=== PATIENT | male | born 1940 | race Caucasian/White ===

== ENCOUNTER 2021-01-27 13:16 | Inpatient (IN) | payer MEDICARE, BC ==
[2021-01-27 15:09] LABS: CHLORIDE,CL 102 mEq/L (98-106); SODIUM,NA 138 mEq/L (136-145)
[2021-01-27] MEDS ORDERED: Sodium Chloride 0.9% 10 ML Syringe FLUSH PRN (15:18)
[2021-01-27] MEDS ORDERED: Temazepam 15 MG Cap PO PRN (15:18)
[2021-01-27] MEDS ORDERED: Azithromycin 500 MG in Sodium Chloride 0.9% 250 ML IV SCH (16:00)
[2021-01-27] MEDS: Diltiazem IR 30 MG Tab PO SCH ×2 (16:18→21:01)
[2021-01-27] MEDS ORDERED: Acetaminophen/HYDROcodone 325-5 MG Tab PO PRN (16:30)
[2021-01-27] MEDS: Albuterol/Ipratropium 3.0-0.5 MG/3 ML Neb Soln NEB PRN (16:36)
[2021-01-27] MEDS: Acetaminophen 325 MG Tab PO PRN (17:03)
[2021-01-27] MEDS: metFORMIN 500 MG Tab PO SCH (17:47)
[2021-01-27] MEDS ORDERED: Non-Formulary Medication 1 Each (Levothyroxine Sodium [Levothyroxine Sodium] 137 MCG Table PO SCH (20:00)
[2021-01-27] MEDS: cefTRIAXone 1 GM Vial IVPUSH SCH (20:28)
[2021-01-27] MEDS: Insulin NPH HUM/REG Insulin HM 100 UNIT/ML 3 ML Vial SQ SCH (20:28)
[2021-01-28] MEDS: Albuterol/Ipratropium 3.0-0.5 MG/3 ML Neb Soln NEB PRN ×2 (00:04→07:46)
[2021-01-28] MEDS ORDERED: Diltiazem 100 MG in Sodium Chloride 0.9% 100 ML IV SCH (00:45)
[2021-01-28] MEDS ORDERED: Furosemide 40 MG/4 ML VIAL IVPUSH SCH (00:45)
[2021-01-28] MEDS ORDERED: Diltiazem 25 MG/5 ML SDV IVPUSH ONE (00:45)
--- NOTE | 2021-01-28 01:39 | PCM.PN ---
- General Info Date of Service: 01/28/21 Subjective Update: Satnam is an 80 yo male who was admitted to the hospital from the clinic with RLL pneumonia and atrial fibrillation with RVR. Patient was started on Cardizem 30mg IR Q6h and received his second dose around 2200 this evening. Nursing staff did notice patient to start declining this evening. Heart rate initially did slow down in the low 100's this afternoon but tonight did go back in the 130- 150's. He states he has been more short of breath tonight. - Review of Systems General: Reports: No Symptoms HEENT: Reports: No Symptoms Pulmonary: Reports: Shortness of Breath, Cough Cardiovascular: Reports: Dyspnea on Exertion. Denies: Chest Pain, Palpitations, Lightheadedness Gastrointestinal: Reports: No Symptoms Genitourinary: Reports: No Symptoms Musculoskeletal: Reports: No Symptoms Neurological: Reports: No Symptoms Psychiatric: Reports: No Symptoms - Patient Data Vitals - Most Recent: Last Vital Signs Temp 97.8 F 01/27/21 23:33 Pulse 118 H 01/28/21 00:03 Resp 26 H 01/28/21 00:03 BP 106/76 01/28/21 00:03 Pulse Ox 92 L 01/28/21 00:03 Weight - Most Recent: 283 lb 1.6 oz Lab Results Last 24 Hours: Laboratory Results - last 24 hr 01/27/21 01/27/21 01/27/21 Range/Units 13:26 14:25 14:25 WBC 8.7 (4.0-11.0) 10^3/uL RBC 4.64 (4.50-6.00) x10^6/uL Hgb 13.7 L (14.0-18.0) g/dL Hct 43.3 (42.0-52.0) % MCV 93.3 (83.0-97.0) fL MCH 29.5 (27.0-32.0) pg MCHC 31.6 L (32.0-36.0) g/dL RDW Coeff of Taiwo 15.2 H (11.0-15.0) % Plt Count 172 (150-400) 10^3/uL Immature Gran % (Auto) 0.1 (0.0-4.9) % Neut % (Auto) 81.6 H (41-71) % Lymph % (Auto) 8.5 L (24-44) % [place] % (Auto) 9.3 (0-10) % Eos % (Auto) 0.3 (0-6) % Baso % (Auto) 0.2 (0-1) % Neut # (Auto) 7.10 (1.80-8.00) x10^3/uL Lymph # (Auto) 0.74 (0.60-5.00) 10^3/uL [place] # (Auto) 0.81 (0.00-1.50) 10^3/uL Eos # (Auto) 0.03 (0.00-1.50) 10^3/uL Baso # (Auto) 0.02 (0.00-0.50) 10^3/uL Immature Gran # (Auto) 0.01 (0.00-0.49) 10^3/uL PT (9.7-12.3) SEC INR (0.92-1.18) Sodium 138 (136-145) mEq/L Potassium 4.8 (3.5-5.0) mEq/L Chloride 102 (98-106) mEq/L Carbon Dioxide 28 (21-32) mmol/L BUN 21 H (7-18) mg/dL Creatinine 1.1 (0.7-1.3) mg/dL Est Cr Clr Drug Dosing TNP Estimated GFR (MDRD) > 60 (>=60) mL/min Glucose 233 H D (75-99) mg/dL POC Glucose (75-105) mg/dL Lactic Acid (0.4-2.0) mmol/L Calcium 8.9 (8.4-10.1) mg/dL Total Bilirubin 1.3 H (0.0-1.0) mg/dL AST 24 (15-37) U/L ALT 35 (12-78) U/L Alkaline Phosphatase 81 (46-116) U/L Creatine Kinase 57 (35-232) U/L Troponin I High Sens 18.3 (<=76) pg/mL C-Reactive Protein 10.4 H (0.2-0.8) mg/dL NT-Pro-B Natriuret Pep 2477 H (0-1000) pg/mL Total Protein 7.6 (6.4-8.2) g/dL Albumin 3.2 L (3.4-5.0) g/dL SARS CoV-2 RNA Rapid SAMIR Negative (NEGATIVE) 01/27/21 01/27/21 01/27/21 Range/Units 14:25 14:25 17:34 WBC (4.0-11.0) 10^3/uL RBC (4.50-6.00) x10^6/uL Hgb (14.0-18.0) g/dL Hct (42.0-52.0) % MCV (83.0-97.0) fL MCH (27.0-32.0) pg MCHC (32.0-36.0) g/dL RDW Coeff of Taiwo (11.0-15.0) % Plt Count (150-400) 10^3/uL Immature Gran % (Auto) (0.0-4.9) % Neut % (Auto) (41-71) % Lymph % (Auto) (24-44) % [place] % (Auto) (0-10) % Eos % (Auto) (0-6) % Baso % (Auto) (0-1) % Neut # (Auto) (1.80-8.00) x10^3/uL Lymph # (Auto) (0.60-5.00) 10^3/uL [place] # (Auto) (0.00-1.50) 10^3/uL Eos # (Auto) (0.00-1.50) 10^3/uL Baso # (Auto) (0.00-0.50) 10^3/uL Immature Gran # (Auto) (0.00-0.49) 10^3/uL PT 22.4 H (9.7-12.3) SEC INR 2.17 H (0.92-1.18) Sodium (136-145) mEq/L Potassium (3.5-5.0) mEq/L Chloride (98-106) mEq/L Carbon Dioxide (21-32) mmol/L BUN (7-18) mg/dL Creatinine (0.7-1.3) mg/dL Est Cr Clr Drug Dosing Estimated GFR (MDRD) (>=60) mL/min Glucose (75-99) mg/dL POC Glucose 216 H (75-105) mg/dL Lactic Acid 1.7 (0.4-2.0) mmol/L Calcium (8.4-10.1) mg/dL Total Bilirubin (0.0-1.0) mg/dL AST (15-37) U/L ALT (12-78) U/L Alkaline Phosphatase (46-116) U/L Creatine Kinase (35-232) U/L Troponin I High Sens (<=76) pg/mL C-Reactive Protein (0.2-0.8) mg/dL NT-Pro-B Natriuret Pep (0-1000) pg/mL Total Protein (6.4-8.2) g/dL Albumin (3.4-5.0) g/dL SARS CoV-2 RNA Rapid SAMIR (NEGATIVE) 01/27/21 Range/Units 20:26 WBC (4.0-11.0) 10^3/uL RBC (4.50-6.00) x10^6/uL Hgb (14.0-18.0) g/dL Hct (42.0-52.0) % MCV (83.0-97.0) fL MCH (27.0-32.0) pg MCHC (32.0-36.0) g/dL RDW Coeff of Taiwo (11.0-15.0) % Plt Count (150-400) 10^3/uL Immature Gran % (Auto) (0.0-4.9) % Neut % (Auto) (41-71) % Lymph % (Auto) (24-44) % [place] % (Auto) (0-10) % Eos % (Auto) (0-6) % Baso % (Auto) (0-1) % Neut # (Auto) (1.80-8.00) x10^3/uL Lymph # (Auto) (0.60-5.00) 10^3/uL [place] # (Auto) (0.00-1.50) 10^3/uL Eos # (Auto) (0.00-1.50) 10^3/uL Baso # (Auto) (0.00-0.50) 10^3/uL Immature Gran # (Auto) (0.00-0.49) 10^3/uL PT (9.7-12.3) SEC INR (0.92-1.18) Sodium (136-145) mEq/L Potassium (3.5-5.0) mEq/L Chloride (98-106) mEq/L Carbon Dioxide (21-32) mmol/L BUN (7-18) mg/dL Creatinine (0.7-1.3) mg/dL Est Cr Clr Drug Dosing Estimated GFR (MDRD) (>=60) mL/min Glucose (75-99) mg/dL POC Glucose 275 H (75-105) mg/dL Lactic Acid (0.4-2.0) mmol/L Calcium (8.4-10.1) mg/dL Total Bilirubin (0.0-1.0) mg/dL AST (15-37) U/L ALT (12-78) U/L Alkaline Phosphatase (46-116) U/L Creatine Kinase (35-232) U/L Troponin I High Sens (<=76) pg/mL C-Reactive Protein (0.2-0.8) mg/dL NT-Pro-B Natriuret Pep (0-1000) pg/mL Total Protein (6.4-8.2) g/dL Albumin (3.4-5.0) g/dL SARS CoV-2 RNA Rapid SAMIR (NEGATIVE) Meño Results Last 24 Hours: Microbiology 01/27/21 14:48 Influenza Type A Antigen Screen - Final Nasopharyngeal Swab NEGATIVE INFLUENZA A VIRUS AG REFERENCE RANGE: NEGATIVE Influenza Type B Antigen Screen - Final NEGATIVE INFLUENZA B VIRUS AG REFERENCE RANGE: NEGATIVE Med Orders - Current: Current Medications Acetaminophen (Acetaminophen 325 Mg Tab) 650 mg PO Q4H PRN PRN Reason: Pain (Mild 1-3)/fever Last Admin: 01/27/21 17:03 Dose: 650 mg Documented by: Hydrocodone Bitart/Acetaminophen (Acetaminophen/Hydrocodone 325-5 Mg Tab) 1 tab PO Q4H PRN PRN Reason: Pain Albuterol/Ipratropium (Albuterol/Ipratropium 3.0-0.5 Mg/3 Ml Neb Soln) 3 ml NEB Q4H PRN PRN Reason: Shortness Of Breath/wheezing Last Admin: 01/28/21 00:04 Dose: 3 ml Documented by: Ceftriaxone Sodium (Ceftriaxone 1 Gm Vial) 1 gm IVPUSH Q24H ELIF Last Admin: 01/27/21 20:28 Dose: 1 gm Documented by: Furosemide (Furosemide 40 Mg Tab) 40 mg PO DAILY@1600 [facility] Furosemide (Furosemide 80 Mg Tab) 80 mg PO DAILY [facility] Furosemide (Furosemide 40 Mg/4 Ml Vial) 40 mg IVPUSH DAILY@1800 [facility] Glipizide (Glipizide 5 Mg Tab) 5 mg PO DAILY [facility] Azithromycin 500 mg/ Sodium (Chloride) 250 mls @ 250 mls/hr IV Q24H [facility] Last Admin: 01/27/21 16:19 Dose: 250 mls/hr Documented by: Diltiazem HCl 100 mg/ Sodium (Chloride) 100 mls @ 5 mls/hr IV TITRATE [facility]; Protocol Last Admin: 01/28/21 01:14 Dose: 5 mg/hr, 5 mls/hr Documented by: Insulin NPH Beef/Pork (Insulin Nph Hum/Reg Insulin Hm 100 Unit/Ml 3 Ml Vial) 40 unit SQ QPM [facility] Last Admin: 01/27/21 20:28 Dose: 15 unit Documented by: Insulin NPH Beef/Pork (Insulin Nph Hum/Reg Insulin Hm 100 Unit/Ml 3 Ml Vial) 60 unit SQ QAM [facility] Levothyroxine Sodium (Levothyroxine 112 Mcg Tab) 112 mcg PO DAILY@0700 [facility] Levothyroxine Sodium (Levothyroxine 50 Mcg Tab) 25 mcg PO 0700 [facility] Metformin HCl (Metformin 500 Mg Tab) 750 mg PO BIDMEALS [facility] Last Admin: 01/27/21 17:47 Dose: 750 mg Documented by: Potassium Chloride (Potassium Chloride 10 Meq Tab.Er) 20 meq PO DAILY [facility] Simvastatin (Simvastatin 40 Mg Tab) 40 mg PO DAILY [facility] Sodium Chloride (Sodium Chloride 0.9% 10 Ml Syringe) 10 ml FLUSH ASDIRECTED PRN PRN Reason: Keep Vein Open Temazepam (Temazepam 15 Mg Cap) 15 mg PO BEDTIME PRN PRN Reason: Sleep Warfarin Sodium (Warfarin 5 Mg Tab) 5 mg PO MoWeFr@1200 [facility] Warfarin Sodium (Warfarin 2.5 Mg Tab) 7.5 mg PO SuTuThSa@1200 [facility] Discontinued Medications Diltiazem HCl (Diltiazem Ir 30 Mg Tab) 30 mg PO Q6H [facility] Last Admin: 01/27/21 21:01 Dose: 30 mg Documented by: Diltiazem HCl (Diltiazem 25 Mg/5 Ml Sdv) 10 mg IVPUSH ONETIME ONE Stop: 01/28/21 00:46 Last Admin: 01/28/21 01:13 Dose: 10 mg Documented by: Lisinopril (Lisinopril 10 Mg Tab) 10 mg PO DAILY [facility] Non-Formulary Medication (Levothyroxine Sodium [Levothyroxine Sodium]) 137 mcg PO BID ELIF Last Admin: 01/28/21 01:15 Dose: Not Given Documented by: - Exam Quality Assessment: Supplemental Oxygen, Urine Catheter Urinary Catheter Total Time: 0Days 0Hours General: Alert, Oriented, Cooperative, Mild Distress, Moderate Distress Lungs: Crackles, Wheezing. No: Normal Respiratory Effort Cardiovascular: Irregular Rhythm, Tachycardia Extremities: Pedal Edema (trace, chronic stasis dermatitis) Psy/Mental Status: Alert, Normal Affect, Normal Mood - Patient Data Lab Results Last 24 hrs: Laboratory Results - last 24 hr 01/27/21 01/27/21 01/27/21 Range/Units 13:26 14:25 14:25 WBC 8.7 (4.0-11.0) 10^3/uL RBC 4.64 (4.50-6.00) x10^6/uL Hgb 13.7 L (14.0-18.0) g/dL Hct 43.3 (42.0-52.0) % MCV 93.3 (83.0-97.0) fL MCH 29.5 (27.0-32.0) pg MCHC 31.6 L (32.0-36.0) g/dL RDW Coeff of Taiwo 15.2 H (11.0-15.0) % Plt Count 172 (150-400) 10^3/uL Immature Gran % (Auto) 0.1 (0.0-4.9) % Neut % (Auto) 81.6 H (41-71) % Lymph % (Auto) 8.5 L (24-44) % [place] % (Auto) 9.3 (0-10) % Eos % (Auto) 0.3 (0-6) % Baso % (Auto) 0.2 (0-1) % Neut # (Auto) 7.10 (1.80-8.00) x10^3/uL Lymph # (Auto) 0.74 (0.60-5.00) 10^3/uL [place] # (Auto) 0.81 (0.00-1.50) 10^3/uL Eos # (Auto) 0.03 (0.00-1.50) 10^3/uL Baso # (Auto) 0.02 (0.00-0.50) 10^3/uL Immature Gran # (Auto) 0.01 (0.00-0.49) 10^3/uL PT (9.7-12.3) SEC INR (0.92-1.18) Sodium 138 (136-145) mEq/L Potassium 4.8 (3.5-5.0) mEq/L Chloride 102 (98-106) mEq/L Carbon Dioxide 28 (21-32) mmol/L BUN 21 H (7-18) mg/dL Creatinine 1.1 (0.7-1.3) mg/dL Est Cr Clr Drug Dosing TNP Estimated GFR (MDRD) > 60 (>=60) mL/min Glucose 233 H D (75-99) mg/dL POC Glucose (75-105) mg/dL Lactic Acid (0.4-2.0) mmol/L Calcium 8.9 (8.4-10.1) mg/dL Total Bilirubin 1.3 H (0.0-1.0) mg/dL AST 24 (15-37) U/L ALT 35 (12-78) U/L Alkaline Phosphatase 81 (46-116) U/L Creatine Kinase 57 (35-232) U/L Troponin I High Sens 18.3 (<=76) pg/mL C-Reactive Protein 10.4 H (0.2-0.8) mg/dL NT-Pro-B Natriuret Pep 2477 H (0-1000) pg/mL Total Protein 7.6 (6.4-8.2) g/dL Albumin 3.2 L (3.4-5.0) g/dL SARS CoV-2 RNA Rapid SAMIR Negative (NEGATIVE) 01/27/21 01/27/21 01/27/21 Range/Units 14:25 14:25 17:34 WBC (4.0-11.0) 10^3/uL RBC (4.50-6.00) x10^6/uL Hgb (14.0-18.0) g/dL Hct (42.0-52.0) % MCV (83.0-97.0) fL MCH (27.0-32.0) pg MCHC (32.0-36.0) g/dL RDW Coeff of Taiwo (11.0-15.0) % Plt Count (150-400) 10^3/uL Immature Gran % (Auto) (0.0-4.9) % Neut % (Auto) (41-71) % Lymph % (Auto) (24-44) % [place] % (Auto) (0-10) % Eos % (Auto) (0-6) % Baso % (Auto) (0-1) % Neut # (Auto) (1.80-8.00) x10^3/uL Lymph # (Auto) (0.60-5.00) 10^3/uL [place] # (Auto) (0.00-1.50) 10^3/uL Eos # (Auto) (0.00-1.50) 10^3/uL Baso # (Auto) (0.00-0.50) 10^3/uL Immature Gran # (Auto) (0.00-0.49) 10^3/uL PT 22.4 H (9.7-12.3) SEC INR 2.17 H (0.92-1.18) Sodium (136-145) mEq/L Potassium (3.5-5.0) mEq/L Chloride (98-106) mEq/L Carbon Dioxide (21-32) mmol/L BUN (7-18) mg/dL Creatinine (0.7-1.3) mg/dL Est Cr Clr Drug Dosing Estimated GFR (MDRD) (>=60) mL/min Glucose (75-99) mg/dL POC Glucose 216 H (75-105) mg/dL Lactic Acid 1.7 (0.4-2.0) mmol/L Calcium (8.4-10.1) mg/dL Total Bilirubin (0.0-1.0) mg/dL AST (15-37) U/L ALT (12-78) U/L Alkaline Phosphatase (46-116) U/L Creatine Kinase (35-232) U/L Troponin I High Sens (<=76) pg/mL C-Reactive Protein (0.2-0.8) mg/dL NT-Pro-B Natriuret Pep (0-1000) pg/mL Total Protein (6.4-8.2) g/dL Albumin (3.4-5.0) g/dL SARS CoV-2 RNA Rapid SAMIR (NEGATIVE) 01/27/21 Range/Units 20:26 WBC (4.0-11.0) 10^3/uL RBC (4.50-6.00) x10^6/uL Hgb (14.0-18.0) g/dL Hct (42.0-52.0) % MCV (83.0-97.0) fL MCH (27.0-32.0) pg MCHC (32.0-36.0) g/dL RDW Coeff of Taiwo (11.0-15.0) % Plt Count (150-400) 10^3/uL Immature Gran % (Auto) (0.0-4.9) % Neut % (Auto) (41-71) % Lymph % (Auto) (24-44) % [place] % (Auto) (0-10) % Eos % (Auto) (0-6) % Baso % (Auto) (0-1) % Neut # (Auto) (1.80-8.00) x10^3/uL Lymph # (Auto) (0.60-5.00) 10^3/uL [place] # (Auto) (0.00-1.50) 10^3/uL Eos # (Auto) (0.00-1.50) 10^3/uL Baso # (Auto) (0.00-0.50) 10^3/uL Immature Gran # (Auto) (0.00-0.49) 10^3/uL PT (9.7-12.3) SEC INR (0.92-1.18) Sodium (136-145) mEq/L Potassium (3.5-5.0) mEq/L Chloride (98-106) mEq/L Carbon Dioxide (21-32) mmol/L BUN (7-18) mg/dL Creatinine (0.7-1.3) mg/dL Est Cr Clr Drug Dosing Estimated GFR (MDRD) (>=60) mL/min Glucose (75-99) mg/dL POC Glucose 275 H (75-105) mg/dL Lactic Acid (0.4-2.0) mmol/L Calcium (8.4-10.1) mg/dL Total Bilirubin (0.0-1.0) mg/dL AST (15-37) U/L ALT (12-78) U/L Alkaline Phosphatase (46-116) U/L Creatine Kinase (35-232) U/L Troponin I High Sens (<=76) pg/mL C-Reactive Protein (0.2-0.8) mg/dL NT-Pro-B Natriuret Pep (0-1000) pg/mL Total Protein (6.4-8.2) g/dL Albumin (3.4-5.0) g/dL SARS CoV-2 RNA Rapid SAMIR (NEGATIVE) Result Diagrams: 01/27/21 14:25 01/27/21 14:25 Meño Results Last 24 hrs: Microbiology 01/27/21 14:48 Influenza Type A Antigen Screen - Final Nasopharyngeal Swab NEGATIVE INFLUENZA A VIRUS AG REFERENCE RANGE: NEGATIVE Influenza Type B Antigen Screen - Final NEGATIVE INFLUENZA B VIRUS AG REFERENCE RANGE: NEGATIVE Sepsis Event Note - Focused Exam Vital Signs: Vital Signs Temp Pulse Resp BP Pulse Ox 01/28/21 00:03 118 H 26 H 106/76 92 L 01/27/21 23:33 97.8 F 129 H 24 H 124/64 91 L 01/27/21 21:00 92 L 01/27/21 20:00 97.2 F 118 H 18 112/62 86 L 01/27/21 18:00 99.8 F 01/27/21 17:03 101.1 F H 01/27/21 16:00 100.0 F 111 H 20 137/93 H 99 - Problem List & Annotations (1) RLL pneumonia SNOMED Code(s): 440555231 Code(s): J18.9 - PNEUMONIA, UNSPECIFIED ORGANISM Status: Acute Current V isit: Yes Qualifiers: Pneumonia type: due to unspecified organism Qualified Code(s): J18.9 - Pneumonia, unspecified organism (2) Atrial fibrillation with RVR SNOMED Code(s): 979854957115006 Code(s): I48.91 - UNSPECIFIED ATRIAL FIBRILLATION Status: Acute Current Visit: Yes - Problem List Review Problem List Initiated/Reviewed/Updated: Yes - My Orders Last 24 Hours: My Active Orders 01/27/21 15:18 Patient Status [ADT] Routine Oxygen Therapy [RC] .PRN Up ad Jael [RC] .PRN Vital Signs [RC] 0000,0400,0800,1200,1600,2000 Acetaminophen [TylenoL] 650 mg PO Q4H PRN Albuterol/Ipratropium [DuoNeb 3.0-0.5 MG/3 ML] 3 ml NEB Q4H PRN Sodium Chloride 0.9% [Saline Flush] 10 ml FLUSH ASDIRECTED PRN Temazepam [Restoril] 15 mg PO BEDTIME PRN Saline Lock Insert [OM.PC] Routine Resuscitation Status Routine 01/27/21 15:19 Cardiac Monitoring [RC] 0800,2000 Pulse Oximetry [RC] .PRN 01/27/21 15:20 RT Aerosol Therapy [RC] .PRN 01/27/21 16:00 Azithromycin [Zithromax] 500 mg Sodium Chloride 0.9% [Normal Saline (AdvBag)] 250 ml IV Q24H 01/27/21 16:29 PT Evaluation and Treatment [CONS] Routine 01/27/21 16:30 Acetaminophen/HYDROcodone [[place] 325-5 MG] 1 tab PO Q4H PRN 01/27/21 16:32 Glucose [Blood Glucose Check, Bedside] [RC] 0730,1130,1730,2100 01/27/21 17:30 metFORMIN [Glucophage] 750 mg PO BIDMEALS 01/27/21 Dinner Consistent Carbohydrate Diet (Diabetic) [Consistent Carbohydrate Diet] [DIET] 01/27/21 20:00 Insulin NPH Hum/Reg Insulin Hm [Humulin 70-30] 40 unit SQ QPM cefTRIAXone [Rocephin] 1 gm IVPUSH Q24H 01/27/21 21:01 CULTURE SPUTUM + SMEAR [RM] Stat 01/28/21 00:23 Echo Comp wo Cont [US] Routine 01/28/21 00:44 Urinary Catheter Assessment [RC] ASDIRECTED 01/28/21 00:45 Pearson Catheter Insertion [Insert Urinary Catheter] [OM.PC] Q24H Diltiazem 100 MG in NS Adv @ 5 MG/HR(100ml) Diltiazem [Cardizem] 100 mg Sodium Chloride 0.9% [Normal Saline] 100 ml IV TITRATE Furosemide [Lasix] 40 mg IVPUSH Q24H 01/28/21 05:11 BASIC METABOLIC PANEL,BMP [CHEM] AM C-REACTIVE PROTEIN [CHEM] AM CBC WITH AUTO DIFF [HEME] AM EKG 12 Lead [EK] AM 01/28/21 07:00 Levothyroxine [Synthroid] 25 mcg PO 0700 01/28/21 08:00 Furosemide [Lasix] 80 mg PO DAILY Insulin NPH Hum/Reg Insulin Hm [Humulin 70-30] 60 unit SQ QAM Levothyroxine Sodium [Levothyroxine Sodium] 137 mcg PO DAILY Potassium Chloride [Klor-Con 10] 20 meq PO DAILY Simvastatin [Zocor] 40 mg PO DAILY glipiZIDE [Glucotrol] 5 mg PO DAILY 01/28/21 12:00 Warfarin [Coumadin] 7.5 mg PO SuTuThSa@1200 01/28/21 16:00 Furosemide [Lasix] 40 mg PO DAILY@1600 01/29/21 12:00 Warfarin [Coumadin] 5 mg PO MoWeFr@1200 - Plan Plan:: Upon arrival patient had shown a decline from admission from the clinic. Discussed with patient being transferred to a higher level of care. Initially did call [facility] in [place] which did not have any available beds. Contacted [facility] in [place] with no availability. Called [facility] in [place] as well, which they do help with bed placement availability in the [facility]. [facility] did not have any available beds. No current beds at any of the major hospitals in the [facility]. Consulted with Dr. Hughes in regards to Ace's condition. Proceeded to give 10mg bolus of IV Cardizem which did slow his heart rate down to 90-low 100's. Started Cardizem drip at 5mg an hour, heart rate did slow down nicely and currently holding in the 90's with satisfactory blood pressures. Than proceeded to give 40mg of Lasix IV as well. Patient's oxygen saturation has improved to 95-96% on 5 liters per nasal canula. Patient was moved to the recliner to keep upright to help with cough and shortness of breath. Patient is currently showing improve ment. Dr. Hughes will follow his care in the hospital. Echocardiogram to be completed in the am as well.
[2021-01-28 07:18] LABS: CHLORIDE,CL 101 mEq/L (98-106); SODIUM,NA 139 mEq/L (136-145)
[2021-01-28] MEDS: Levothyroxine 112 MCG Tab PO SCH (07:31)
[2021-01-28] MEDS: Levothyroxine 50 MCG Tab PO SCH (07:31)
[2021-01-28] MEDS: metFORMIN 500 MG Tab PO SCH ×2 (07:43→17:24)
[2021-01-28] MEDS: Furosemide 80 MG Tab PO SCH (07:45)
[2021-01-28] MEDS: glipiZIDE 5 MG Tab PO SCH (07:45)
[2021-01-28] MEDS: Potassium Chloride 10 MEQ Tab.ER PO SCH (07:45)
[2021-01-28] MEDS: Acetaminophen 325 MG Tab PO PRN ×3 (07:46→16:02)
[2021-01-28] MEDS: Insulin NPH HUM/REG Insulin HM 100 UNIT/ML 3 ML Vial SQ SCH ×2 (07:55→20:34)
[2021-01-28] MEDS ORDERED: Lisinopril 10 MG Tab PO SCH (08:00)
[2021-01-28] MEDS ORDERED: Simvastatin 40 MG Tab PO SCH (08:00)
[2021-01-28] MEDS ORDERED: VANCOmycin 1 GM/200 ML 1 GM in Premix Bag 1 BAG IV SCH (10:15)
--- NOTE | 2021-01-28 11:12 | PN ---
DATE: 01/28/2021 S: Ace was admitted last night by Javier for pneumonia with associated rapid atrial fibrillation. No history of atrial fibrillation. He is anticoagulated for history of prior DVTs and he was therapeutic. We had to put him on a Cardizem drip to get his rate controlled. He did get a dose of Lasix for some likely superimposed CHF. Chest x-ray does show basilar pneumonia. His T-max overnight was around 101.7. Sputum culture fortunately was obtained. He is on IV Rocephin and Zithromax. The patient is feeling better. Had about 2200 mL of fluid out with his IV Lasix last night and he has dropped his O2 requirement from 5 to 2 L, and he is running around 97%. O: VITAL SIGNS: At this time, he has a temp a 100.7, his BP is 106/44, pulse is in the 90s and irregular. HEENT: Grossly benign. NECK: He has no resting JVD. LUNGS: Lung sounds are rhonchus with inspiratory and expiratory wheezes. There are some rales in the right base. CARDIAC: Tones are irregular. ABDOMEN: Obese and soft. EXTREMITIES: Trace ankle edema. ASSESSMENT: 1. PNEUMONIA. 2. RAPID ATRIAL FIBRILLATION. 3. 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 4. TYPE 2 DIABETES. 5. HYPOTHYROIDISM. 6. HYPERLIPIDEMIA. 7. 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 P: We will try to get him on oral Cardizem CD today and stop his drip. Echo was ordered, which will be, I believe, done tomorrow. He is back on an oral dose of Lasix and we will keep a close eye on his fluid status. Sputum culture is pending and we will make his nebulizer scheduled for now. IMTIAZ/JOSE RAUL /[id number]
[2021-01-28] MEDS: Warfarin 2.5 MG Tab PO SCH (11:35)
[2021-01-28] MEDS: Albuterol/Ipratropium 3.0-0.5 MG/3 ML Neb Soln NEB SCH ×3 (11:36→19:33)
[2021-01-28] MEDS: VANCOmycin 1.5 GM/300 ML 1.5 GM in Premix Bag 1 BAG IV SCH (11:36)
[2021-01-28] MEDS: Furosemide 40 MG Tab PO SCH (15:40)
[2021-01-28] MEDS: Diltiazem 180 MG Cap.CD PO SCH (15:40)
[2021-01-28] MEDS: Ibuprofen 200 MG Tab PO PRN (17:49)
[2021-01-28] MEDS: cefTRIAXone 1 GM Vial IVPUSH SCH (19:33)
[2021-01-28] MEDS ORDERED: Simvastatin 20 MG Tab PO SCH (20:00)
[2021-01-29] MEDS: Levothyroxine 112 MCG Tab PO SCH (06:32)
[2021-01-29] MEDS: Levothyroxine 50 MCG Tab PO SCH (06:33)
[2021-01-29] MEDS: Albuterol/Ipratropium 3.0-0.5 MG/3 ML Neb Soln NEB SCH ×4 (07:34→19:26)
[2021-01-29] MEDS: Furosemide 80 MG Tab PO SCH (07:39)
[2021-01-29] MEDS: Potassium Chloride 10 MEQ Tab.ER PO SCH (07:40)
[2021-01-29] MEDS: metFORMIN 500 MG Tab PO SCH ×2 (07:40→17:31)
[2021-01-29] MEDS: Diltiazem 180 MG Cap.CD PO SCH (07:41)
[2021-01-29] MEDS: Acetaminophen 325 MG Tab PO PRN ×3 (07:41→20:09)
[2021-01-29] MEDS: glipiZIDE 5 MG Tab PO SCH (07:41)
[2021-01-29] MEDS: Insulin NPH HUM/REG Insulin HM 100 UNIT/ML 3 ML Vial SQ SCH ×2 (07:43→20:17)
[2021-01-29] MEDS: Ibuprofen 200 MG Tab PO PRN (10:08)
[2021-01-29] MEDS: VANCOmycin 1.5 GM/300 ML 1.5 GM in Premix Bag 1 BAG IV SCH (12:42)
[2021-01-29] MEDS: Warfarin 5 MG Tab PO SCH (12:43)
--- NOTE | 2021-01-29 13:35 | PN ---
DATE: 01/29/2021 S: Satnam is clinically doing better. His rate has been controlled with oral Cardizem. He is running in the 80s to 90s, typically satting now in the mid 90s on 2 L. Still having a lot of congestion and loose mucus. Did spike a temp this morning of 101.1. Denies any chest pain. O: GENERAL: He is in his usual state. HEENT: Grossly benign. NECK: His neck veins are flat. LUNGS: Lung sounds remain rhonchus throughout with basilar rales. CARDIAC: Tones irregular, but controlled. ABDOMEN: Soft and nontender. EXTREMITIES: No significant peripheral edema. Right leg is wrapped where he has a stasis ulceration. ASSESSMENT: 1. PNEUMONIA. 2. RAPID ATRIAL FIBRILLATION, IMPROVED. 3. CONGESTIVE HEART FAILURE, IMPROVED, LIKELY SECONDARY TO TACHYCARDIA. 4. TYPE 2 DIABETES. 5. HYPOTHYROIDISM. 6. HYPERLIPIDEMIA. 7. CHRONIC ANTICOAGULATION SECONDARY TO HISTORY OF DEEP VENOUS THROMBOSES. P: We will put him on some oral Mucinex, still waiting on sputum cultures. Clinically, he looks better. We will continue with all other current cares. Repeat chest x-ray and appropriate lab tomorrow morning. IMTIAZ/JOSE RAUL /[id number]
[2021-01-29] MEDS: guaiFENesin 200 MG Tab PO SCH ×2 (14:12→19:26)
[2021-01-29] MEDS: Furosemide 40 MG Tab PO SCH (16:31)
[2021-01-29] MEDS: cefTRIAXone 1 GM Vial IVPUSH SCH (19:26)
[2021-01-30] MEDS: Levothyroxine 112 MCG Tab PO SCH (06:00)
[2021-01-30] MEDS: Levothyroxine 50 MCG Tab PO SCH (06:01)
[2021-01-30 07:19] LABS: CHLORIDE,CL 102 mEq/L (98-106); SODIUM,NA 142 mEq/L (136-145)
[2021-01-30] MEDS: metFORMIN 500 MG Tab PO SCH ×2 (07:46→17:46)
[2021-01-30] MEDS: Furosemide 80 MG Tab PO SCH (07:46)
[2021-01-30] MEDS: Diltiazem 180 MG Cap.CD PO SCH (07:47)
[2021-01-30] MEDS: Potassium Chloride 10 MEQ Tab.ER PO SCH (07:47)
[2021-01-30] MEDS: glipiZIDE 5 MG Tab PO SCH (07:47)
[2021-01-30] MEDS: guaiFENesin 200 MG Tab PO SCH ×3 (07:47→20:03)
[2021-01-30] MEDS: Albuterol/Ipratropium 3.0-0.5 MG/3 ML Neb Soln NEB SCH ×4 (07:47→20:10)
[2021-01-30] MEDS: Insulin NPH HUM/REG Insulin HM 100 UNIT/ML 3 ML Vial SQ SCH ×2 (08:07→20:20)
--- NOTE | 2021-01-30 10:34 | PN ---
DATE: S: Ace is feeling better. Has not had a temp for over 24 hours. Pulse is controlled. His atrial fibrillation has been running in the 90s, up to the low teens at times. Blood pressures have been fine. O: GENERAL: He is pleasant and cooperative. He appears less distressed. NECK: Neck veins are flat. LUNGS: Lung sounds are still rhonchus, but much better air movement. There is audible wheezing. CARDIAC: Tones remain irregular and tachy at times. ABDOMEN: Soft and nontender. He has no significant peripheral edema. ASSESSMENT: 1. PNEUMONIA. 2. RAPID ATRIAL FIBRILLATION, IMPROVED. 3. CONGESTIVE HEART FAILURE, STABLE. 4. TYPE 2 DIABETES. 5. HYPOTHYROIDISM. 6. HYPERLIPIDEMIA. P: The patient will have an attempt at weaning his O2 today. His pulse is still a little bit tachy at times, especially with exertion and so I am going to increase his Cardizem from 180 to 240. He will get an extra 60 this morning. Overall, patient appears markedly improved. Discontinue his Pearson today. IMTIAZ/JOSE RAUL /[id number]
[2021-01-30] MEDS: Warfarin 2.5 MG Tab PO SCH (11:57)
[2021-01-30] MEDS: VANCOmycin 1.5 GM/300 ML 1.5 GM in Premix Bag 1 BAG IV SCH (11:57)
[2021-01-30] MEDS ORDERED: Diltiazem IR 30 MG Tab PO ONE (13:35)
[2021-01-30] MEDS: Furosemide 40 MG Tab PO SCH (15:58)
[2021-01-30] MEDS ORDERED: Diltiazem IR 30 MG Tab PO SCH (20:00)
[2021-01-30] MEDS: cefTRIAXone 1 GM Vial IVPUSH SCH (20:03)
[2021-01-31] MEDS: Levothyroxine 112 MCG Tab PO SCH (06:07)
[2021-01-31] MEDS: Levothyroxine 50 MCG Tab PO SCH (06:08)
[2021-01-31] MEDS: Diltiazem 120 MG Cap.CD PO SCH (07:55)
[2021-01-31] MEDS: metFORMIN 500 MG Tab PO SCH ×2 (07:56→18:45)
[2021-01-31] MEDS: Furosemide 80 MG Tab PO SCH (07:56)
[2021-01-31] MEDS: guaiFENesin 200 MG Tab PO SCH ×3 (07:56→19:46)
[2021-01-31] MEDS: Insulin NPH HUM/REG Insulin HM 100 UNIT/ML 3 ML Vial SQ SCH ×2 (07:57→20:30)
[2021-01-31] MEDS: Albuterol/Ipratropium 3.0-0.5 MG/3 ML Neb Soln NEB SCH ×4 (07:57→19:46)
[2021-01-31] MEDS: Potassium Chloride 10 MEQ Tab.ER PO SCH (07:57)
[2021-01-31] MEDS: glipiZIDE 5 MG Tab PO SCH (07:57)
[2021-01-31] MEDS ORDERED: methylPREDNISolone Sodium Succinate 125 MG/2 ML SDV IVPUSH ONE (09:30)
[2021-01-31] MEDS: Warfarin 5 MG Tab PO SCH (11:53)
--- NOTE | 2021-01-31 14:56 | PN ---
DATE: 01/31/2021 S: Mr. Melo is feeling better. We were able to wean him off O2. He is now satting around 94% to 95% on room air. His AFib seems to be better controlled. He is running rates in the 80s and 90s. We have him on Cardizem CD at 240, which seems to be a good dose. He is not having any hypotension. We did discontinue his Pearson catheter yesterday and he is voiding without any difficulty. Staff have no new concerns. O: GENERAL: He is in his usual state. HEENT: Grossly benign. NECK: His neck veins are flat. LUNGS: Sounds remain rhonchus with expiratory wheezes. He is very loud throughout the upper apices and a little less throughout the bases, but overall air movement continues to improve. HEART: His cardiac tones remain irregular, but controlled. ABDOMEN: Soft. He has no significant edema. ASSESSMENT: 1. PNEUMONIA. 2. ATRIAL FIBRILLATION. 3. CONGESTIVE HEART FAILURE, IMPROVED. 4. TYPE 2 DIABETES. 5. HYPOTHYROIDISM. P: We will get the patient up and ambulating more today, make sure he maintains his sats on room air. I am going to give him a dose of IV steroids today as he is quite rhonchus and audibly wheezing. He should be ready for discharge by tomorrow. IMTIAZ/JOSE RAUL /[id number]
[2021-01-31] MEDS: Furosemide 40 MG Tab PO SCH (16:05)
[2021-01-31] MEDS: cefTRIAXone 1 GM Vial IVPUSH SCH (19:46)
[2021-01-31] MEDS: methylPREDNISolone Sodium Succinate 125 MG/2 ML SDV IVPUSH SCH (19:49)
[2021-02-01] MEDS: Levothyroxine 50 MCG Tab PO SCH (07:31)
[2021-02-01] MEDS: Levothyroxine 112 MCG Tab PO SCH (07:31)
[2021-02-01] MEDS: metFORMIN 500 MG Tab PO SCH (07:43)
[2021-02-01] MEDS: Diltiazem 120 MG Cap.CD PO SCH (07:43)
[2021-02-01] MEDS: Potassium Chloride 10 MEQ Tab.ER PO SCH (07:43)
[2021-02-01] MEDS: Albuterol/Ipratropium 3.0-0.5 MG/3 ML Neb Soln NEB SCH ×2 (07:44→11:48)
[2021-02-01] MEDS: glipiZIDE 5 MG Tab PO SCH (07:44)
[2021-02-01] MEDS: Furosemide 80 MG Tab PO SCH (07:44)
[2021-02-01] MEDS: guaiFENesin 200 MG Tab PO SCH (07:44)
[2021-02-01] MEDS: methylPREDNISolone Sodium Succinate 125 MG/2 ML SDV IVPUSH SCH (07:45)
[2021-02-01] MEDS: Insulin NPH HUM/REG Insulin HM 100 UNIT/ML 3 ML Vial SQ SCH (07:45)
--- NOTE | 2021-02-01 11:01 | PCM.DCSUM1 ---
Discharge Summary - Hospital Course Free Text/Narrative:: Ace is an 80 year old male who presented to clinic with increased shortness of breath and congestion. Did not increased cough, fatigue. Noted to have increased sinus congestion, postnasal drainage, weakness. Worried about Covid despite having the vaccinations. Afebrile. Work up did show RLL Pneumonia. EKG shows ATrial Fib with RVR. Was admitted and started on IV antibiotics, Cardizem drip. Diagnosis: Stroke: No Modified Beny Scale: No Symptoms at All Modified Lowndes Scale Score: 0 - Discharge Data Discharge Date: 02/01/21 Discharge Disposition: Home, Self-Care 01 Condition: Fair - Referral to Home Health Primary Care Physician: Brent Hughes MD - Discharge Diagnosis/Problem(s) (1) Atrial fibrillation with RVR SNOMED Code(s): 300290165314336 ICD Code: I48.91 - UNSPECIFIED ATRIAL FIBRILLATION Status: Acute (2) RLL pneumonia SNOMED Code(s): 678170640 ICD Code: J18.9 - PNEUMONIA, UNSPECIFIED ORGANISM Status: Acute Qualifiers: Pneumonia type: due to unspecified organism Qualified Code(s): J18.9 - Pneumonia, unspecified organism - Patient Summary/Data Complications: none Consults: Consultations 01/27/21 16:29 PT Evaluation and Treatment [CONS] Routine 01/29/21 05:27 PT Evaluation and Treatment [CONS] Routine Hospital Course: Patient is doing well today. Now afebrile. Weaned off oxygen. Ambulating about without shortness of breath. Appetite is good. Did have issues with heart rate control, blood pressure. Cardizem IV was stopped and over the course of the week, Cardiazem oral was increased to 240. Started IV steroids as continued to have rhonchi and congestion. Lungs improved with this. Labs have stabilized, CRP down to 6.0. Will discharge home. Start Ceftin. Cardizem daily. Prednisone for 4 days. Follow up with Dr. Hughes this week prior to leaving for the [facility] for the winter. - Patient Instructions Diet: Diabetic Diet Activity: As Tolerated - Discharge Plan *PRESCRIPTION DRUG MONITORING PROGRAM REVIEWED*: No *COPY OF PRESCRIPTION DRUG MONITORING REPORT IN PATIENT DENAE: No Prescriptions/Med Rec: Diltiazem [Cardizem CD] 240 mg PO DAILY #30 cap.cd Cefuroxime [Ceftin] 250 mg PO BID #14 tab guaiFENesin [Organ-I NR] 200 mg PO TID #21 tablet predniSONE [Prednisone] 40 mg PO DAILY #6 tablet Home Medications: Home Meds Calcium Carb/D3/Magnesium/Zinc [Pyfulwj-Ppu-Mycz-Vit D] 1 tab PO QID 09/19/14 [History] Furosemide [Lasix] 80 mg PO DAILY 09/19/14 [History] Hydrocodone/Acetaminophen [HYDROcodone-Acetaminophen 7.5-325 MG] 1 tab PO Q4H PRN 09/19/14 [History] Potassium Chloride 20 meq PO DAILY 09/19/14 [History] Simvastatin 40 mg PO DAILY 09/19/14 [History] Warfarin Sodium 5 mg PO MOWEFR 09/19/14 [History] Warfarin Sodium 7.5 mg PO SUTUTHSA 09/19/14 [History] Furosemide 40 mg PO DAILY 01/27/21 [History] Insuln Asp Prot/Insulin Aspart [NovoLOG Mix 70-30] 40 unit SUBCUT QPM 01/27/21 [History] Insuln Asp Prot/Insulin Aspart [NovoLOG Mix 70-30] 60 units SUBCUT QAM 01/27/21 [History] Levothyroxine Sodium 137 mcg PO DAILY 01/27/21 [History] glipiZIDE [Glucotrol] 5 mg PO DAILY 01/27/21 [History] metFORMIN HCl [Metformin HCl ER] 750 mg PO BIDMEALS 01/27/21 [History] Cefuroxime [Ceftin] 250 mg PO BID #14 tab 02/01/21 [Rx] Diltiazem [Cardizem CD] 240 mg PO DAILY #30 cap.cd 02/01/21 [Rx] guaiFENesin [Organ-I NR] 200 mg PO TID #21 tablet 02/01/21 [Rx] predniSONE [Prednisone] 40 mg PO DAILY #6 tablet 02/01/21 [Rx] Patient Handouts: Atrial Fibrillation, Community-Acquired Pneumonia, Adult Referrals: Brent Hughes MD [Primary Care Provider] - (Follow up with Dr. Hughes on ) - Discharge Summary/Plan Comment DC Time >30 min.: No Total # of Minutes for Discharge Time: 20 - General Info Date of Service: 02/01/21 Admission Dx/Problem (Free Text: RLL Pneumonia Atrial Fib with RVR Functional Status: Reports: Pain Controlled, Tolerating Diet, Ambulating - Review of Systems General: Denies: Fever, Weakness, Fatigue, Malaise HEENT: Reports: Rhinitis Pulmonary: Denies: Shortness of Breath, Cough Cardiovascular: Reports: Edema. Denies: Chest Pain, Lightheadedness Gastrointestinal: Denies: Abdominal Pain, Nausea, Vomiting Genitourinary: Reports: No Symptoms Musculoskeletal: Reports: No Symptoms Skin: Reports: No Symptoms Neurological: Reports: No Symptoms - Patient Data Vitals - Most Recent: Last Vital Signs Temp 97.4 F 02/01/21 08:00 Pulse 85 02/01/21 08:00 Resp 18 02/01/21 08:00 BP 126/54 L 02/01/21 08:00 Pulse Ox 96 02/01/21 08:00 Weight - Most Recent: 283 lb 1.6 oz I&O - Last 24 hours: Intake & Output 01/31/21 02/01/21 02/01/21 22:59 06:59 14:59 Intake Total 850 800 Output Total 1100 Balance -250 800 Lab Results - Last 24 hrs: Laboratory Results - last 24 hr 01/31/21 01/31/21 01/31/21 Range/Units 11:54 17:36 20:10 POC Glucose 206 H 331 H 288 H (75-105) mg/dL 02/01/21 Range/Units 07:26 POC Glucose 309 H (75-105) mg/dL Med Orders - Current: Current Medications Acetaminophen (Acetaminophen 325 Mg Tab) 650 mg PO Q4H PRN PRN Reason: Pain (Mild 1-3)/fever Last Admin: 01/29/21 20:09 Dose: 650 mg Documented by: Hydrocodone Bitart/Acetaminophen (Acetaminophen/Hydrocodone 325-5 Mg Tab) 1 tab PO Q4H PRN PRN Reason: Pain Albuterol/Ipratropium (Albuterol/Ipratropium 3.0-0.5 Mg/3 Ml Neb Soln) 3 ml NEB QIDRT [facility] Last Admin: 02/01/21 07:44 Dose: 3 ml Documented by: Ceftriaxone Sodium (Ceftriaxone 1 Gm Vial) 1 gm IVPUSH Q24H [facility] Last Admin: 01/31/21 19:46 Dose: 1 gm Documented by: Diltiazem HCl (Diltiazem 120 Mg Cap.Cd) 240 mg PO DAILY [facility] Last Admin: 02/01/21 07:43 Dose: 240 mg Documented by: Furosemide (Furosemide 40 Mg Tab) 40 mg PO DAILY@1600 [facility] Last Admin: 01/31/21 16:05 Dose: 40 mg Documented by: Furosemide (Furosemide 80 Mg Tab) 80 mg PO DAILY [facility] Last Admin: 02/01/21 07:44 Dose: 80 mg Documented by: Glipizide (Glipizide 5 Mg Tab) 5 mg PO DAILY [facility] Last Admin: 02/01/21 07:44 Dose: 5 mg Documented by: Guaifenesin (Guaifenesin 200 Mg Tab) 200 mg PO TID [facility] Last Admin: 02/01/21 07:44 Dose: 200 mg Documented by: Insulin NPH Beef/Pork (Insulin Nph Hum/Reg Insulin Hm 100 Unit/Ml 3 Ml Vial) 40 unit SQ QPM [facility] Last Admin: 01/31/21 20:30 Dose: 15 unit Documented by: Insulin NPH Beef/Pork (Insulin Nph Hum/Reg Insulin Hm 100 Unit/Ml 3 Ml Vial) 60 unit SQ QAM [facility] Last Admin: 02/01/21 07:45 Dose: 25 unit Documented by: Levothyroxine Sodium (Levothyroxine 112 Mcg Tab) 112 mcg PO DAILY@0700 [facility] Last Admin: 02/01/21 07:31 Dose: 112 mcg Documented by: Levothyroxine Sodium (Levothyroxine 50 Mcg Tab) 25 mcg PO 0700 [facility] Last Admin: 02/01/21 07:31 Dose: 25 mcg Documented by: Metformin HCl (Metformin 500 Mg Tab) 750 mg PO BIDMEALS [facility] Last Admin: 02/01/21 07:43 Dose: 750 mg Documented by: Methylprednisolone Sodium Succinate (Methylprednisolone Sodium Succinate 125 Mg/2 Ml Sdv) 62.5 mg IVPUSH Q12H [facility] Last Admin: 02/01/21 07:45 Dose: 62.5 mg Documented by: Potassium Chloride (Potassium Chloride 10 Meq Tab.Er) 20 meq PO DAILY [facility] Last Admin: 02/01/21 07:43 Dose: 20 meq Documented by: Simvastatin (Simvastatin 20 Mg Tab) 20 mg PO BEDTIME [facility] Last Admin: 01/28/21 19:33 Dose: 20 mg Documented by: Sodium Chloride (Sodium Chloride 0.9% 10 Ml Syringe) 10 ml FLUSH ASDIRECTED PRN PRN Reason: Keep Vein Open Temazepam (Temazepam 15 Mg Cap) 15 mg PO BEDTIME PRN PRN Reason: Sleep Warfarin Sodium (Warfarin 5 Mg Tab) 5 mg PO MoWeFr@1200 [facility] Last Admin: 01/31/21 11:53 Dose: 5 mg Documented by: Warfarin Sodium (Warfarin 2.5 Mg Tab) 7.5 mg PO SuTuThSa@1200 [facility] Last Admin: 01/30/21 11:57 Dose: 7.5 mg Documented by: Discontinued Medications Albuterol/Ipratropium (Albuterol/Ipratropium 3.0-0.5 Mg/3 Ml Neb Soln) 3 ml NEB Q4H PRN PRN Reason: Shortness Of Breath/wheezing Last Admin: 01/28/21 07:46 Dose: 3 ml Documented by: Diltiazem HCl (Diltiazem Ir 30 Mg Tab) 30 mg PO Q6H [facility] Last Admin: 01/27/21 21:01 Dose: 30 mg Documented by: Diltiazem HCl (Diltiazem 25 Mg/5 Ml Sdv) 10 mg IVPUSH ONETIME ONE Stop: 01/28/21 00:46 Last Admin: 01/28/21 01:13 Dose: 10 mg Documented by: Diltiazem HCl (Diltiazem 180 Mg Cap.Cd) 180 mg PO DAILY [facility] Last Admin: 01/30/21 07:47 Dose: 180 mg Documented by: Diltiazem HCl (Diltiazem Ir 30 Mg Tab) 30 mg PO DAILY@1300,2000 [facility] Stop: 01/30/21 21:30 Last Admin: 01/30/21 20:10 Dose: 30 mg Documented by: Diltiazem HCl (Diltiazem Ir 30 Mg Tab) 30 mg PO ONETIME ONE Stop: 01/30/21 13:36 Last Admin: 01/30/21 13:43 Dose: 30 mg Documented by: Furosemide (Furosemide 40 Mg/4 Ml Vial) 40 mg IVPUSH DAILY@1800 [facility] Last Admin: 01/28/21 01:38 Dose: 40 mg Documented by: Azithromycin 500 mg/ Sodium (Chloride) 250 mls @ 250 mls/hr IV Q24H [facility] Last Admin: 01/27/21 16:19 Dose: 250 mls/hr Documented by: Diltiazem HCl 100 mg/ Sodium (Chloride) 100 mls @ 5 mls/hr IV TITRATE [facility]; Protocol Last Admin: 01/28/21 01:14 Dose: 5 mg/hr, 5 mls/hr Documented by: Vancomycin HCl 1.5 gm/ Premix 300 mls @ 200 mls/hr IV Q24H [facility] Last Admin: 01/30/21 11:57 Dose: 200 mls/hr Documented by: Ibuprofen (Ibuprofen 200 Mg Tab) 400 mg PO Q6H PRN PRN Reason: Fever Last Admin: 01/29/21 10:08 Dose: 400 mg Documented by: Lisinopril (Lisinopril 10 Mg Tab) 10 mg PO DAILY [facility] Methylprednisolone Sodium Succinate (Methylprednisolone Sodium Succinate 125 Mg/2 Ml Sdv) 62.5 mg IVPUSH ONETIME ONE Stop: 01/31/21 09:31 Last Admin: 01/31/21 09:56 Dose: 62.5 mg Documented by: Non-Formulary Medication (Levothyroxine Sodium [Levothyroxine Sodium]) 137 mcg PO BID [facility] Last Admin: 01/28/21 01:15 Dose: Not Given Documented by: Simvastatin (Simvastatin 40 Mg Tab) 40 mg PO DAILY [facility] Last Admin: 01/28/21 07:44 Dose: 40 mg Documented by: - Exam General: Reports: Alert, Oriented HEENT: Reports: Mucous Membr. Moist/[place] Neck: Reports: Supple Lungs: Reports: Normal Respiratory Effort, Rhonchi Cardiovascular: Reports: Regular Rate, Regular Rhythm GI/Abdominal Exam: Normal Bowel Sounds, Soft, Non-Tender Extremities: Normal Inspection, Pedal Edema Skin: Reports: Warm, Dry Neurological: Reports: No New Focal Deficit
[2021-02-01] MEDS: Warfarin 2.5 MG Tab PO SCH (11:48)
[2021-02-01 12:12] VITALS: BP 109/47; PULSE 90
== END 2021-02-01 13:07 | disposition home or self-care (01) | DRG 291 ==
LOC: CC.FCMC 13:16 → CC.MS 15:11
PROVIDERS: ADMIT Physician Assistant Medical; ATTEND Family Medicine
DX: I11.0 Hypertensive heart disease with heart failure (principal); J18.9 Pneumonia, unspecified organism; I48.91 Unspecified atrial fibrillation; I50.33 Acute on chronic diastolic (congestive) heart failure; E78.5 Hyperlipidemia, unspecified; E03.9 Hypothyroidism, unspecified; E11.9 Type 2 diabetes mellitus without complications; I50.9 Heart failure, unspecified; Z20.822 Contact with and (suspected) exposure to COVID-19; Z79.52 Long term (current) use of systemic steroids; Z79.01 Long term (current) use of anticoagulants; Z79.84 Long term (current) use of oral hypoglycemic drugs; Z79.899 Other long term (current) drug therapy; Z88.0 Allergy status to penicillin; Z86.718 Personal history of other venous thrombosis and embolism
CPT/HCPCS: 36415; 51702; 71046; 80048; 80053; 82550; 82947; 83605; 83880; 84443; 84484; 85025; 85610; 86140; 87070; 87205; 87804; 93005; 93010; 93306; 94640; 97110-GP; 97161-GP; 97530-GP; 97597-GP; A9270-GY; J0456; J0696; J1815-GY; J1940; J2930; J3370; J3490; J7050; J7620-GY; U0002

== ENCOUNTER 2021-02-09 09:21 | Emergency (ER) | payer MEDICARE, BC ==
[2021-02-09 09:34] VITALS: BP 129/54; PULSE 89
[2021-02-09 10:19] LABS: CHLORIDE,CL 102 mEq/L (98-106); SODIUM,NA 139 mEq/L (136-145)
--- NOTE | 2021-02-09 10:24 | EDM.PDOC ---
ED HPI GENERAL MEDICAL PROBLEM - General Chief Complaint: Gastrointestinal Problem Time Seen by Provider: 02/09/21 10:06 Source of Information: Reports: Patient History Limitations: Reports: No Limitations - History of Present Illness INITIAL COMMENTS - FREE TEXT/NARRATIVE: This patient is an 80 year old male that presents to the ER. Patient reports that started last night with vomiting. Patient reports his stomach feels "uneasy". Patient reports that he started throwing up last night and has thrown up a few times. Patient reports that his vomit is darker in color. Patient reports that he has not thrown up this morning. Patient reports that he was admitted to the hospital about a week ago with pneumonia and discharged home. Patient reports that he was seen by PCP on and doing fine. Patient reports that he does take Coumadin. Patient denies headache, d, f, cough, congestion,. drainage, loss of taste, loss of smell, neck pain, sore throat, chest pain, shortness of breath, back pain, dysuria, or difficulty urinating. Patient denies any easy bruising. Patient is alert and oriented. Patient is currently drinking a Sprite. Will be NPO from now. Patient reports previous old abd surgery is from colon clot. Onset Date: 02/08/21 Onset Time: 18:00 Location: Reports: Abdomen Quality: Reports: Other ("uneasy") Severity: Moderate Improves with: Reports: None Worsens with: Reports: None Associated Symptoms: Reports: Nausea/Vomiting. Denies: Confusion, Chest Pain, Cough, cough w sputum, Diaphoresis, Fever/Chills, Headaches, Loss of Appetite, Malaise, Rash, Seizure, Shortness of Breath, Syncope, Weakness - Related Data Allergies Allergy/AdvReac Type Severity Reaction Status Date / Time amoxicillin Allergy Nausea Verified 02/09/21 09:34 Home Meds: Home Meds Calcium Carb/D3/Magnesium/Zinc [Ocgtztl-Lri-Kmbn-Vit D] 1 tab PO QID 09/19/14 [History] Furosemide [Lasix] 80 mg PO DAILY 09/19/14 [History] Hydrocodone/Acetaminophen [HYDROcodone-Acetaminophen 7.5-325 MG] 1 tab PO Q4H PRN 09/19/14 [History] Potassium Chloride 20 meq PO DAILY 09/19/14 [History] Simvastatin 40 mg PO DAILY 09/19/14 [History] Warfarin Sodium 5 mg PO MOWEFR 09/19/14 [History] Warfarin Sodium 7.5 mg PO SUTUTHSA 09/19/14 [History] Furosemide 40 mg PO DAILY 01/27/21 [History] Insuln Asp Prot/Insulin Aspart [NovoLOG Mix 70-30] 40 unit SUBCUT QPM 01/27/21 [History] Insuln Asp Prot/Insulin Aspart [NovoLOG Mix 70-30] 60 units SUBCUT QAM 01/27/21 [History] Levothyroxine Sodium 137 mcg PO DAILY 01/27/21 [History] glipiZIDE [Glucotrol] 5 mg PO DAILY 01/27/21 [History] metFORMIN HCl [Metformin HCl ER] 750 mg PO BIDMEALS 01/27/21 [History] Cefuroxime [Ceftin] 250 mg PO BID #14 tab 02/01/21 [Rx] Diltiazem [Cardizem CD] 240 mg PO DAILY #30 cap.cd 02/01/21 [Rx] guaiFENesin [Organ-I NR] 200 mg PO TID #21 tablet 02/01/21 [Rx] Past Medical History Cardiovascular History: Reports: Afib, High Cholesterol, Hypertension Gastrointestinal History: Reports: Other (See Below) Other Gastrointestinal History: "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" Genitourinary History: Reports: BPH Musculoskeletal History: Reports: Arthritis Neurological History: Reports: Other (See Below) Other Neuro History: budd-chiari syndrome Endocrine/Metabolic History: Reports: Diabetes, Type II, Hypothyroidism - Past Surgical History Musculoskeletal Surgical History: Reports: Other (See Below) Other Musculoskeletal Surgeries/Procedures:: impingement syndrome of both shoulders Social & Family History - Tobacco Use Tobacco Use Status *Q: Never Tobacco User Second Hand Smoke Exposure: No - Caffeine Use Caffeine Use: Reports: None - Recreational Drug Use Recreational Drug Use: No ED ROS GENERAL - Review of Systems Review Of Systems: See Below Constitutional: Reports: No Symptoms HEENT: Reports: No Symptoms Respiratory: Reports: No Symptoms Cardiovascular: Reports: No Symptoms Endocrine: Reports: No Symptoms GI/Abdominal: Reports: Abdominal Pain, Nausea, Vomiting. Denies: Diarrhea : Reports: No Symptoms Musculoskeletal: Reports: No Symptoms Skin: Reports: No Symptoms Neurological: Reports: No Symptoms Psychiatric: Reports: No Symptoms Hematologic/Lymphatic: Reports: No Symptoms Immunologic: Reports: No Symptoms ED EXAM, GI/ABD - Physical Exam Exam: See Below Exam Limited By: No Limitations General Appearance: Alert, WD/WN, No Apparent Distress Eyes: Bilateral: Normal Appearance Ears: Normal External Exam, Normal Canal, Hearing Grossly Normal, Normal TMs Nose: Normal Inspection, Normal Mucosa, No Blood Throat/Mouth: Normal Inspection, Normal Lips, Normal Teeth, Normal Gums, Normal Oropharynx, Normal Voice, No Airway Compromise Head: Atraumatic, Normocephalic Neck: Normal Inspection, Supple, Non-Tender, Full Range of Motion Respiratory/Chest: No Respiratory Distress, Lungs Clear, Normal Breath Sounds, No Accessory Muscle Use, Chest Non-Tender Cardiovascular: Normal Peripheral Pulses, Regular Rate, Rhythm, No Edema, No Gallop, No JVD, No Murmur, No Rub GI/Abdominal Exam: Normal Bowel Sounds, Soft, No Abnormal Bruit, Distended, Tender (RLQ mild), Hernia (not reducable. ), Other (old surgical scar vertical from colon clot per patient. ). No: Guarding, Rigid, Rebound Back Exam: Normal Inspection, Full Range of Motion Extremities: Normal Inspection, Normal Range of Motion, Non-Tender, No Pedal Edema, Normal Capillary Refill Neurological: Alert, Oriented, Normal Cognition, Normal Gait, No Motor/Sensory Deficits Psychiatric: Normal Affect, Normal Mood Skin Exam: Warm, Dry, Intact, Normal Color, No Rash Lymphatic: No Adenopathy Course - Vital Signs Last Recorded V/S: Last Vital Signs Temp 96.6 F L 02/09/21 09:26 Pulse 89 02/09/21 09:26 Resp 20 02/09/21 09:26 BP 129/54 L 02/09/21 09:26 Pulse Ox 95 02/09/21 09:26 - Orders/Labs/Meds Orders: Active Orders 24 hr Category Date Time Status Abdomen Pelvis w Cont [CT] Stat Exams 02/09/21 10:27 Taken Transfuse Fresh Frozen Plasma [COMM] Stat Oth 02/09/21 14:42 Ordered Labs: Laboratory Tests 02/09/21 02/09/21 02/09/21 Range/Units 09:50 09:50 09:50 WBC 12.9 H (4.0-11.0) 10^3/uL RBC 4.87 (4.50-6.00) x10^6/uL Hgb 14.3 (14.0-18.0) g/dL Hct 44.7 (42.0-52.0) % MCV 91.8 (83.0-97.0) fL MCH 29.4 (27.0-32.0) pg MCHC 32.0 (32.0-36.0) g/dL RDW Coeff of Taiwo 15.4 H (11.0-15.0) % Plt Count 248 (150-400) 10^3/uL Immature Gran % (Auto) 0.2 (0.0-4.9) % Neut % (Auto) 89.2 H (41-71) % Lymph % (Auto) 5.8 L (24-44) % [place] % (Auto) 4.6 (0-10) % Eos % (Auto) 0.1 (0-6) % Baso % (Auto) 0.1 (0-1) % Neut # (Auto) 11.48 H (1.80-8.00) x10^3/uL Lymph # (Auto) 0.75 (0.60-5.00) 10^3/uL [place] # (Auto) 0.59 (0.00-1.50) 10^3/uL Eos # (Auto) 0.01 (0.00-1.50) 10^3/uL Baso # (Auto) 0.01 (0.00-0.50) 10^3/uL Immature Gran # (Auto) 0.02 (0.00-0.49) 10^3/uL PT 17.8 H (9.7-12.3) SEC INR 1.69 H (0.92-1.18) Sodium 139 (136-145) mEq/L Potassium 4.1 (3.5-5.0) mEq/L Chloride 102 (98-106) mEq/L Carbon Dioxide 31 (21-32) mmol/L BUN 19 H (7-18) mg/dL Creatinine 1.0 (0.7-1.3) mg/dL Est Cr Clr Drug Dosing 60.83 mL/min Estimated GFR (MDRD) > 60 (>=60) mL/min Glucose 323 H* D (75-99) mg/dL Lactic Acid (0.4-2.0) mmol/L Calcium 9.0 (8.4-10.1) mg/dL Total Bilirubin 1.0 (0.0-1.0) mg/dL AST 28 (15-37) U/L ALT 47 (12-78) U/L Alkaline Phosphatase 91 (46-116) U/L C-Reactive Protein 2.3 H (0.2-0.8) mg/dL Total Protein 7.2 (6.4-8.2) g/dL Albumin 2.9 L (3.4-5.0) g/dL Amylase (25-115) U/L Lipase (73-393) U/L Urine Color (YELLOW) Urine Appearance (CLEAR) Urine pH (4.5-8.0) Ur Specific [place] (1.003-1.020) Urine Protein (NEGATIVE) mg/dL Urine Glucose (UA) (NEGATIVE) mg/dL Urine Ketones (NEGATIVE) mg/dL Urine Occult Blood (NEGATIVE) Urine Nitrite (NEGATIVE) Urine Bilirubin (NEGATIVE) Urine Urobilinogen (0.2-1.0) EU/dL Ur Leukocyte Esterase (NEGATIVE) Urine RBC (0-5) /HPF Urine WBC (0-5) /HPF Urinalysis Comment SARS CoV-2 RNA Rapid SAMIR (NEGATIVE) 02/09/21 02/09/21 02/09/21 Range/Units 09:50 10:35 13:52 WBC (4.0-11.0) 10^3/uL RBC (4.50-6.00) x10^6/uL Hgb (14.0-18.0) g/dL Hct (42.0-52.0) % MCV (83.0-97.0) fL MCH (27.0-32.0) pg MCHC (32.0-36.0) g/dL RDW Coeff of Taiwo (11.0-15.0) % Plt Count (150-400) 10^3/uL Immature Gran % (Auto) (0.0-4.9) % Neut % (Auto) (41-71) % Lymph % (Auto) (24-44) % [place] % (Auto) (0-10) % Eos % (Auto) (0-6) % Baso % (Auto) (0-1) % Neut # (Auto) (1.80-8.00) x10^3/uL Lymph # (Auto) (0.60-5.00) 10^3/uL [place] # (Auto) (0.00-1.50) 10^3/uL Eos # (Auto) (0.00-1.50) 10^3/uL Baso # (Auto) (0.00-0.50) 10^3/uL Immature Gran # (Auto) (0.00-0.49) 10^3/uL PT (9.7-12.3) SEC INR (0.92-1.18) Sodium (136-145) mEq/L Potassium (3.5-5.0) mEq/L Chloride (98-106) mEq/L Carbon Dioxide (21-32) mmol/L BUN (7-18) mg/dL Creatinine (0.7-1.3) mg/dL Est Cr Clr Drug Dosing mL/min Estimated GFR (MDRD) (>=60) mL/min Glucose (75-99) mg/dL Lactic Acid 2.2 H (0.4-2.0) mmol/L Calcium (8.4-10.1) mg/dL Total Bilirubin (0.0-1.0) mg/dL AST (15-37) U/L ALT (12-78) U/L Alkaline Phosphatase (46-116) U/L C-Reactive Protein (0.2-0.8) mg/dL Total Protein (6.4-8.2) g/dL Albumin (3.4-5.0) g/dL Amylase 51 (25-115) U/L Lipase 139 (73-393) U/L Urine Color (YELLOW) Urine Appearance (CLEAR) Urine pH (4.5-8.0) Ur Specific [place] (1.003-1.020) Urine Protein (NEGATIVE) mg/dL Urine Glucose (UA) (NEGATIVE) mg/dL Urine Ketones (NEGATIVE) mg/dL Urine Occult Blood (NEGATIVE) Urine Nitrite (NEGATIVE) Urine Bilirubin (NEGATIVE) Urine Urobilinogen (0.2-1.0) EU/dL Ur Leukocyte Esterase (NEGATIVE) Urine RBC (0-5) /HPF Urine WBC (0-5) /HPF Urinalysis Comment SARS CoV-2 RNA Rapid SAMIR Negative (NEGATIVE) 02/09/21 Range/Units 15:01 WBC (4.0-11.0) 10^3/uL RBC (4.50-6.00) x10^6/uL Hgb (14.0-18.0) g/dL Hct (42.0-52.0) % MCV (83.0-97.0) fL MCH (27.0-32.0) pg MCHC (32.0-36.0) g/dL RDW Coeff of Taiwo (11.0-15.0) % Plt Count (150-400) 10^3/uL Immature Gran % (Auto) (0.0-4.9) % Neut % (Auto) (41-71) % Lymph % (Auto) (24-44) % [place] % (Auto) (0-10) % Eos % (Auto) (0-6) % Baso % (Auto) (0-1) % Neut # (Auto) (1.80-8.00) x10^3/uL Lymph # (Auto) (0.60-5.00) 10^3/uL [place] # (Auto) (0.00-1.50) 10^3/uL Eos # (Auto) (0.00-1.50) 10^3/uL Baso # (Auto) (0.00-0.50) 10^3/uL Immature Gran # (Auto) (0.00-0.49) 10^3/uL PT (9.7-12.3) SEC INR (0.92-1.18) Sodium (136-145) mEq/L Potassium (3.5-5.0) mEq/L Chloride (98-106) mEq/L Carbon Dioxide (21-32) mmol/L BUN (7-18) mg/dL Creatinine (0.7-1.3) mg/dL Est Cr Clr Drug Dosing mL/min Estimated GFR (MDRD) (>=60) mL/min Glucose (75-99) mg/dL Lactic Acid (0.4-2.0) mmol/L Calcium (8.4-10.1) mg/dL Total Bilirubin (0.0-1.0) mg/dL AST (15-37) U/L ALT (12-78) U/L Alkaline Phosphatase (46-116) U/L C-Reactive Protein (0.2-0.8) mg/dL Total Protein (6.4-8.2) g/dL Albumin (3.4-5.0) g/dL Amylase (25-115) U/L Lipase (73-393) U/L Urine Color Yellow (YELLOW) Urine Appearance Slightly cloudy (CLEAR) Urine pH 8.0 (4.5-8.0) Ur Specific [place] 1.015 (1.003-1.020) Urine Protein Negative (NEGATIVE) mg/dL Urine Glucose (UA) >=1000 H (NEGATIVE) mg/dL Urine Ketones 40 H (NEGATIVE) mg/dL Urine Occult Blood Large H (NEGATIVE) Urine Nitrite Negative (NEGATIVE) Urine Bilirubin Negative (NEGATIVE) Urine Urobilinogen 0.2 (0.2-1.0) EU/dL Ur Leukocyte Esterase Negative (NEGATIVE) Urine RBC 75-100 H (0-5) /HPF Urine WBC Not seen (0-5) /HPF Urinalysis Comment SARS CoV-2 RNA Rapid SAMIR (NEGATIVE) Meds: Medications Discontinued Medications Generic Name Dose Route Start Last Admin Trade Name Kennyq PRN Reason Stop Dose Admin Sodium Chloride 500 mls @ 500 mls/hr 02/09/21 10:30 02/09/21 11:30 Normal Saline IV 500 mls/hr .BOLUS ELIF Administration Piperacillin Sod/Tazobactam 100 mls @ 200 mls/hr 02/09/21 14:35 02/09/21 14:42 Sod 4.5 gm/ Sodium Chloride IV 02/09/21 15:04 200 mls/hr STAT ONE Administration Sodium Chloride Confirm 02/09/21 15:11 02/09/21 16:14 Normal Saline Administered 02/09/21 15:12 Not Given Dose 100 mls @ as directed .ROUTE .STK-MED ONE Sodium Chloride Confirm 02/09/21 15:16 02/09/21 16:13 Normal Saline Administered 02/09/21 15:17 Not Given Dose 100 mls @ as directed .ROUTE .STK-MED ONE Sodium Chloride Confirm 02/09/21 15:19 02/09/21 16:12 Normal Saline Administered 02/09/21 15:20 Not Given Dose 100 mls @ as directed .ROUTE .STK-MED ONE Iopamidol 100 ml 02/09/21 10:57 02/09/21 11:04 Iopamidol 755 Mg/Ml 100 Ml Bottle IVPUSH 02/09/21 10:58 100 ml ONETIME ONE Administration Morphine Sulfate 2 mg 02/09/21 13:31 02/09/21 14:43 Morphine 2 Mg/Ml Syringe IVPUSH 02/09/21 13:32 2 mg ONETIME ONE Administration Ondansetron HCl 4 mg 02/09/21 10:28 02/09/21 11:30 Ondansetron 4 Mg/2 Ml Sdv IVPUSH 02/09/21 10:29 4 mg NOW STA Administration Ondansetron HCl 4 mg 02/09/21 13:31 02/09/21 14:41 Ondansetron 4 Mg/2 Ml Sdv IVPUSH 02/09/21 13:32 4 mg NOW STA Administration Piperacillin Sod/Tazobactam Sod Confirm 02/09/21 15:10 02/09/21 16:12 Piperacillin/Tazobactam 4.5 Gm Advvial Administered 02/09/21 15:11 Not Given Dose 4.5 gm .ROUTE .[facility] ONE Piperacillin Sod/Tazobactam Sod Confirm 02/09/21 15:16 02/09/21 16:12 Piperacillin/Tazobactam 4.5 Gm Advvial Administered 02/09/21 15:17 Not Given Dose 4.5 gm .ROUTE .STK-MED ONE - Radiology Interpretation Free Text/Narrative:: ABD/PELVIS WITH CONTRAST: Anterior abdominal hernia contains loops of small bowel which have some fecalization within them and proximal bowl are obstructed. Cholelithiasis. Nonobstructing renal calculi. CT Results Date: 02/09/21 CT Results Time: 13:13 - Re-Assessments/Exams Free Text/Narrative Re-Assessment/Exam: 02/09/21 12:56 Patient has not vomited since being in the ER. Awaiting on CT results. I called film room [place], has not been read yet. Awaiting read. 02/09/21 13:32 Patient now reports he is having an increase in his abdominal pain again and nausea. Will give pain medication. Spoke to patient about his CT results, he would like to try transfer to [place], [place]. 02/09/21 13:43 I called and spoke to [facility] in [place], they have to beds and 3 in front of him for transfer. They will put on hold list when available and let us know. I will continue to find transfer placement for patient. 02/09/21 13:45 I have called [facility], spoke to general surgeon Dr. Sifuentes. She reports that this needs to go the or within an hour and recommends flight. [facility] has reported the ER is on total bed diversion and cannot accept patient at this time. 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 Surgeon reports to [facility] to let her know. I will now try [facility]. 02/09/21 13:56 I have placed a call to [facility]. On hold. While on hold, I have called [facility] back, they are accepting the patient. Dr. Miller in ER. While on hold to speak to Dr. Sifuentes again, I have called flight [facility], they are attempting to arrange flight. 02/09/21 14:[address] Sifuentes again about this patient. Will give FFP for his INR elevation. Will give Zosyn IV. Patient has reported history of allergy to Amoxicillin. Patient reports this only happened once a very log time ago. He reports he has taken Amoxicillin after that many times without issue and has taken other PCN medications without issues. Still waiting on flight. 02/09/21 14:48 Waiting on flight. Still waiting on FFP. 02/09/21 14:57 Lab has just informed me of plasma machine needing to warm up and could take more than 45 minutes from now to obtain FFP. Therefore, no FFP will be given in [place]. Flight near arrival. I will pass this along in report to flight. 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 - Discharge Information *PRESCRIPTION DRUG MONITORING PROGRAM REVIEWED*: Not Applicable *COPY OF PRESCRIPTION DRUG MONITORING REPORT IN PATIENT DENAE: Not Applicable Referrals: PCP,None [Primary Care Provider] - Forms: ED Department Discharge Sepsis Event Note (ED) - Evaluation Sepsis Screening Result: No Definite Risk - Focused Exam Vital Signs: Vital Signs Temp Pulse Resp BP Pulse Ox 02/09/21 09:26 96.6 F L 89 20 129/54 L 95 - My Orders Last 24 Hours: My Active Orders 02/09/21 10:27 Abdomen Pelvis w Cont [CT] Stat 02/09/21 14:42 Transfuse Fresh Frozen Plasma [COMM] Stat - Assessment/Plan Last 24 Hours: My Active Orders 02/09/21 10:27 Abdomen Pelvis w Cont [CT] Stat 02/09/21 14:42 Transfuse Fresh Frozen Plasma [COMM] Stat Plan: PLEASE SEE RN NOTE FOR PFSH Patient is being transferred/flown to [facility]. The patient has been explained risk vs benefits and has accepted the patient. The risk of transfer is flight crash, , worsening of condition, [place]. The benefits of transfer are general surgeon, higher level of care, surgery. The risk of staying in [place] is no general surgeon, no critical care beds. The benefits of staying in [place] is close to home.
[2021-02-09] MEDS ORDERED: Ondansetron 4 MG/2 ML SDV IVPUSH STA ×2 (10:28→13:31)
[2021-02-09] MEDS ORDERED: Sodium Chloride 0.9% 500 ML IV SCH (10:30)
[2021-02-09] MEDS ORDERED: Iopamidol 755 Mg/ML 100 ML Bottle IVPUSH ONE (10:57)
[2021-02-09] MEDS ORDERED: Morphine 2 MG/ML SYRINGE IVPUSH ONE (13:31)
[2021-02-09] MEDS ORDERED: Piperacillin/Tazobactam 4.5 GM in Sodium Chloride 0.9% 100 ML IV ONE (14:35)
[2021-02-09] MEDS ORDERED: Piperacillin/Tazobactam 4.5 GM AdvVial ONE ×2 (15:10→15:16)
[2021-02-09] MEDS ORDERED: Sodium Chloride 0.9% 100 ML ONE ×3 (15:11→15:19)
== END 2021-02-09 15:40 ==
LOC: CC.ED 09:21
DX: K55.059 Acute (reversible) ischemia of intestine, part and extent unspecified (principal); K56.609 Unspecified intestinal obstruction, unspecified as to partial versus complete obstruction; I48.91 Unspecified atrial fibrillation; E78.00 Pure hypercholesterolemia, unspecified; I10 Essential (primary) hypertension; M19.90 Unspecified osteoarthritis, unspecified site; E11.9 Type 2 diabetes mellitus without complications; E03.9 Hypothyroidism, unspecified; Z88.0 Allergy status to penicillin; Z79.4 Long term (current) use of insulin; Z79.899 Other long term (current) drug therapy; Z20.822 Contact with and (suspected) exposure to COVID-19
CPT/HCPCS: 36415; 74177; 80053; 81001; 82150; 83605; 83690; 85025; 85610; 86140; 96365; 96375; 96376; 99285; J2270; J2405; J2543; J7040; Q9967; U0002; 99284